=== PATIENT | male | born 1965 | race Caucasian/White ===

== ENCOUNTER 2021-10-20 20:44 | Emergency (ER) | payer MEDICAID, SELFPAY ==
--- NOTE | ~2021-10-20 | XR_ITS ---
EXAMINATION: XR chest 2V Exam Date/Time: 10/20/2021 21:50 CDT CLINICAL HISTORY: right rib pain,PT SAYS HE HAS BROKEN RIBS X3 MONTHS AGO Comparison: None available. RESULT: Lines, tubes, and devices: None. Lungs and pleura: Clear. Cardiomediastinal silhouette: Normal cardiomediastinal silhouette. Other: No acute osseous or upper abdominal finding. IMPRESSION: No acute cardiopulmonary process Reviewed, dictated and finalized at location [facility].
[2021-10-20 21:08] VITALS: BP 143/89; PULSE 85; RESP 16; TEMP 36.8; O2SAT 97
--- NOTE | 2021-10-20 22:05 | ED.GENADULT ---
HPI - General Adult General Chief complaint: Unspecified Stated complaint: Rib Pain Time Seen by Provider: 10/20/21 21:47 History of Present Illness HPI narrative: Patient is a 56-year-old male here for evaluation of right-sided rib pain for the past 4 months. Patient states that he opened a trailer door and it hit him in the right side of the chest. He has had some chronic pain ever since, possibly worse with respirations. States that he seen his primary care doctor, and been evaluated at multiple different emergency departments for this pain. He has been told that he has rib fractures on the right, and has been prescribed meloxicam Tylenol and ibuprofen without much relief of his pain. Denies difficulty breathing due to the pain, denies fevers, chills, chest pain, abdominal pain, bruising. Denies reinjury of area. Related Data Allergies Allergy/AdvReac Type Severity Reaction Status Date / Time diphenhydramine Allergy Unknown Verified 10/20/21 21:15 [From Benadryl] lisinopril Allergy Cough Verified 10/20/21 21:15 losartan Allergy Hives Verified 10/20/21 21:15 methylphenidate Allergy Unknown Verified 10/20/21 21:15 [From Ritalin] Penicillins Allergy Unknown Verified 10/20/21 21:15 Ringer's solution,lactated Allergy Diarrhea Verified 10/20/21 21:15 Sulfa (Sulfonamide Allergy Unknown Verified 10/20/21 21:15 Antibiotics) Review of Systems Review of Systems: Gen.: Denies fevers or chills Eyes: Denies eye pain or visual change ENT: Denies congestion Respiratory: Denies shortness of breath or cough CV: Denies chest pain or palpitations GI: Denies abdominal pain nausea, emesis or diarrhea denies burning, urgency, frequency or hematuria Musculoskeletal: Reports right-sided rib pain. Denies back pain or muscle pain Neuro: Denies numbness, tingling, weakness or focal weakness Skin: Denies rash Except as documented, all other systems reviewed and negative All systems reviewed & are unremarkable except as noted in HPI and below Exam Narrative: APPEARANCE: Well appearing, no pain in distress, well-nourished. Head: normocephalic and atraumatic. EYES: PERRLA/EOMI, conjunctivae clear NOSE: No nasal drainage EARS: External ear normal in appearance THROAT: Oropharynx is clear. Mucous membranes are moist. NECK: Supple. No adenopathy, no masses. RESPIRATORY: Airway patent, respirations nonlabored. Clear to auscultation bilaterally, no rales, rhonchi, wheezing. CARDIOVASCULAR: Regular rate and rhythm without murmurs, rubs, or gallops. ABDOMINAL: Normoactive bowel sounds. Soft, nontender, nondistended. No rebound tenderness or guarding. MUSCULOSKELETAL: No bony tenderness along ribs; no step-offs or deformities palpated. Pain is reproduced with rotation of torso. Extremities are warm and well-perfused. Moves all extremities well. No edema. NEURO: Normal speech. No focal neurologic deficits. SKIN: No ecchymosis across entire abdomen. Skin is warm and dry. No rashes. PSYCHIATRIC: Normal affect/mood. Course Vital Signs Vital signs: Vital Signs Temperature 98.3 F 10/20/21 21:08 Pulse Rate 85 10/20/21 21:08 Respiratory Rate 16 10/20/21 21:08 Blood Pressure 143/89 H 10/20/21 21:08 Pulse Oximetry 97 10/20/21 21:08 Temperature 98.3 F 10/20/21 21:08 Pulse Rate 70 10/20/21 22:41 Respiratory Rate 16 10/20/21 22:41 Blood Pressure 134/78 10/20/21 22:41 Pulse Oximetry 98 10/20/21 22:41 Medical Decision Making MDM Narrative Medical decision making narrative: 56-year-old male here with right-sided rib pain since getting hit with a trailer door 4 months ago. He has been seen numerous times for the same at outside hospitals and was reportedly diagnosed with a rib fracture. Chest x-ray without obvious fracture or pneumothorax. Considered, but feel very unlikely, ACS, given traumatic onset, history of rib fracture, and reproducible pain with rotation of torso. Provided patient with lidocaine pa
[2021-10-20] MEDS: LIDOCAINE 5% PATCH 1 PATCH TRANSDERM (22:23)
[2021-10-20 22:41] VITALS: BP 134/78; PULSE 70; RESP 16; O2SAT 98
== END 2021-10-20 22:43 | disposition home or self-care (01) ==
PROVIDERS: Emergency Provider Emergency Medicine
DX: R07.81 Pleurodynia (principal)
CPT/HCPCS: 71046; 99283; A9270

== ENCOUNTER 2021-11-18 16:23 | Emergency (ER) | payer MEDICAID, SELFPAY ==
[2021-11-18 16:35] VITALS: BP 155/88; PULSE 100; RESP 16; TEMP 36.2; O2SAT 99
[2021-11-18 16:45] VITALS: BP 150/83; PULSE 87; RESP 17; O2SAT 98
--- NOTE | 2021-11-18 16:47 | ED.NAVMDI ---
HPI - Nausea/Vomiting/Diarrhea General Chief complaint: Nausea/Vomiting/Diarrhea Stated complaint: N/V FOR DAYS Time Seen by Provider: 11/18/21 16:44 History of Present Illness HPI Narrative: Pt presents with vomiting and diarrhea for the last two days several times a day. Pt says diarrhea has gone away but still vomiting. Pt denies fever or abdominal pain. Related Data Allergies Allergy/AdvReac Type Severity Reaction Status Date / Time diphenhydramine Allergy Unknown Verified 10/20/21 21:15 [From Benadryl] lisinopril Allergy Cough Verified 10/20/21 21:15 losartan Allergy Hives Verified 10/20/21 21:15 methylphenidate Allergy Unknown Verified 10/20/21 21:15 [From Ritalin] Penicillins Allergy Unknown Verified 10/20/21 21:15 Ringer's solution,lactated Allergy Diarrhea Verified 10/20/21 21:15 Sulfa (Sulfonamide Allergy Unknown Verified 10/20/21 21:15 Antibiotics) Review of Systems Review of Systems: All systems reviewed & are unremarkable except as noted in HPI and below Exam Const: General: healthy appearing Nutritional Appearance: well nourished Orientation/consciousness: patient oriented x3 Chest: Chest palpation & inspection: normal inspection of the chest Resp: Effort & Inspection: normal respiratory effort Auscultation: clear to auscultation bilaterally Cardio: Rate: regular rate Rhythm: regular rhythm GI: GI Palp: Yes Soft to palpation Auscultation: normal bowel sounds Skin: General skin exam: normal color Neuro: General: patient oriented x3, moves all extremities, no meningeal signs, no focal motor deficits and CN's II-XI intact bilaterally Cranial nerves: Yes Nystagmus not present Speech: normal speech Gait exam (Neuro): Normal gait present Extrem: General: normal to inspection and no clubbing, cyanosis or edema Psych: Mental Status: mental status grossly normal Affect: normal affect Attitude: cooperative Course Vital Signs Vital signs: Vital Signs Temperature 97.1 F L 11/18/21 16:35 Pulse Rate 100 11/18/21 16:35 Respiratory Rate 16 11/18/21 16:35 Blood Pressure 155/88 H 11/18/21 16:35 Pulse Oximetry 99 11/18/21 16:35 Oxygen Delivery Room Air 11/18/21 16:35 Temperature 97.1 F L 11/18/21 16:35 Pulse Rate 92 11/18/21 18:42 Respiratory Rate 16 11/18/21 18:42 Blood Pressure 141/76 H 11/18/21 18:42 Pulse Oximetry 97 11/18/21 18:42 Oxygen Delivery Room Air 11/18/21 16:35 MDM - Nausea/Vomiting/Diarrhea Lab Data Result diagrams: 11/18/21 16:59 11/18/21 16:59 Labs: Lab Results 11/18/21 11/18/21 11/18/21 Range/Units 16:59 16:59 18:20 WBC 13.3 H (4.5-10.0) K/mm3 RBC 5.09 (4.6-6.20) M/mm3 Hgb 14.5 (14.0-18.0) g/dL Hct 44.2 (42.0-52.0) % MCV 86.8 (80-100) fl MCH 28.5 (26-34) pg MCHC 32.8 (32-36) g/dl RDW 14.1 (11.5-14.5) % Plt Count 273 (150-375) k/mm3 MPV 9.3 (7.4-10.4) fl Immature Gran % (Auto) 0.5 (0-0.5) % Neut % (Auto) 77.2 H (45.5-73.1) % Lymph % (Auto) 13.4 L (18.3-44.2) % Baker % (Auto) 7.2 (2.6-8.5) % Eos % (Auto) 1.3 (0-4.4) % Baso % (Auto) 0.4 (0.2-1.2) % Lymph # (Auto) 1.78 (0.9-3.2) K/mm3 Baker # (Auto) 1.0 H (0.1-0.6) K/mm3 Eos # (Auto) 0.2 (0-0.3) K/mm3 Baso # (Auto) 0.1 (0.0-0.1) K/mm3 Abs Immat Gran (auto) 0.07 H (0.00-0.031) K/mm3 Absolute Neuts (auto) 10.3 H (1.3-6.7) K/mm3 Absolute Nucleated RBC 0.0 (0.0-0.012) K/mm3 Nucleated RBC % 0.0 (0.0-0.2) % Sodium 137 (137-145) mmol/L Potassium 4.2 (3.4-5.0) mmol/L Chloride 103 (98-107) mmol/L Carbon Dioxide 30 (22-30) mmol/L Anion Gap 4 L (8-16) mmol/L BUN 11 (9-20) mg/dL Creatinine 1.20 (0.7-1.3) mg/dL Estim Creat Clear Calc 78 ml/min Estimated GFR > 60 (59 - ) Glucose 46 L* (65-110) mg/dL POC Capillary Glucose 65 (65-105) mg/dl Calcium 9.6 (8.4-10.2) mg/dL
[2021-11-18] MEDS: SODIUM CHLORIDE 0.9% IV 1,000 ML 999 ML IV CONT (17:00)
[2021-11-18] MEDS: ONDANSETRON INJ 4 MG/2 ML VIAL IV PUSH (17:00)
[2021-11-18 17:07] LABS: Basophils Absolute Auto 0.1 K/mm3 (0.0-0.1); Basophils Percent Auto 0.4 % (0.2-1.2); Eosinophils Absolute Auto 0.2 K/mm3 (0-0.3); Eosinophils Percent Auto 1.3 % (0-4.4); Hematocrit 44.2 % (42.0-52.0); Hemoglobin 14.5 g/dL (14.0-18.0); Immature Granulocyte Absolute 0.07 K/mm3 (0.00-0.031); Immature Granulocyte Percent A 0.5 % (0-0.5); Lymphocytes Absolute Auto 1.78 K/mm3 (0.9-3.2); Lymphocytes Percent Auto 13.4 % (18.3-44.2); Mean Corpuscular HGB Conc 32.8 g/dl (32-36); Mean Corpuscular Hemoglobin 28.5 pg (26-34); Mean Corpuscular Volume 86.8 fl (80-100); Mean Platelet Volume 9.3 fl (7.4-10.4); Monocytes Percent Auto 7.2 % (2.6-8.5); Neutrophils Absolute Auto 10.3 K/mm3 (1.3-6.7); Neutrophils Percent Auto 77.2 % (45.5-73.1); Platelet Count Result 273 k/mm3 (150-375); Red Blood Count 5.09 M/mm3 (4.6-6.20); Red Cell Distribution Width 14.1 % (11.5-14.5); White Blood Count 13.3 K/mm3 (4.5-10.0)
[2021-11-18 17:20] LABS: Alanine Aminotransferase 55 U/L (6-50); Albumin Level 4.6 g/dL (3.5-5.1); Alkaline Phosphatase 196 U/L (38-126); Anion Gap 4 mmol/L (8-16); Aspartate Amino Transferase 72 U/L (17-59); Bilirubin,Total 0.9 mg/dL (0.2-1.3); Blood Urea Nitrogen 11 mg/dL (9-20); Calcium 9.6 mg/dL (8.4-10.2); Carbon Dioxide 30 mmol/L (22-30); Chloride 103 mmol/L (98-107); Estimated CRCL calculation 78 ml/min; Estimated Glomerular Filt Rate > 60; Glucose 46 mg/dL (65-110); Potassium 4.2 mmol/L (3.4-5.0); Sodium 137 mmol/L (137-145)
[2021-11-18] MEDS: BELLADONNA ALK/PHENOB ELIX 10 ML, MAG HYDROX/ALUMINUM HYD/SIMETH 30 ML, LIDOCAINE HCL 2... PO (17:35)
--- NOTE | 2021-11-18 18:08 | PC.NURSE ---
BG 46, provider aware received sprite and cookies per provider
[2021-11-18 18:23] LABS: Glucose Point of Care 65 mg/dl (65-105)
--- NOTE | 2021-11-18 18:41 | PC.NURSE ---
repeat BG was 65, provider Oliva stating pt can be dc from ED.
[2021-11-18 18:42] VITALS: BP 141/76; PULSE 92; RESP 16; O2SAT 97
== END 2021-11-18 18:45 | disposition home or self-care (01) ==
PROVIDERS: Emergency Provider Emergency Medicine
DX: K52.9 Noninfective gastroenteritis and colitis, unspecified (principal)
CPT/HCPCS: 36415; 80053; 82948; 85025; 96361; 96374; 96375; 99284; A9270; J2405; J7030